=== PATIENT | male | born 1990 | race African-American/Black ===

== ENCOUNTER 2025-02-24 15:27 | Outpatient (AMB) | payer OTHER, SELFPAY ==
--- NOTE | 2025-02-24 15:32 | A.OFFPC_ITS ---
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 Saw ortho [place] new insurance is requiring Ortho referral Saw Dr. Evelio Rogers at [facility] Accompanied by: Self / Same As Patient Allergies metoclopramide (From Reglan) Allergy (Mild, Verified 02/24/25 15:40) jittery Tobacco use date assessed: 02/24/25 Dental Screening Dental Screen Date: 02/24/25 Did you have a dental visit in the last 12 months?: Yes Was dental information given to patient?: Patient has dentist HPI HPI Comments History of Present Illness Details History of Present Illness The patient is a 34-year-old male presenting to [facility] care with a new primary care physician and for a comprehensive health evaluation. Left Knee Injury: The patient sustained a -related injury to his left knee last year. He received treatment at that time, which included an MRI and other scans. His symptoms improved, and he is not currently experiencing any knee issues. He was being followed by an orthopedist, Dr. Evelio Rogers, but missed a follow-up appointment. Neck Tightness: The patient reports experiencing neck tightness, which he believes may be related to his sleeping position and stress. He has been trying to exercise to alleviate the tightness. Surgical History: - No surgical history reported. Social History: - Employment: The patient works in [employer] in the [employer] and has been for three years. - Substance Use: Denies smoking and drin kelechi. - Marital Status: He has been fo r several years. - Family Planning: He and his are n ot actively trying for children yet, but plan to in the next year or two. - Sexual History: He is sexually active and has been a few years. - Country of Origin: He is originally fr [facility] [facility]. Family History: - Denies family history of prostate canc er. Diagnostic Results: - MRI and scans of the left knee were pe rformed last year, results not detailed. Past Medical History - Left knee injury, -related, oc curred last year; workup included an MRI and consultation with an information technology specialist. Health Maintenance - The patient is establishing care with a new primary care physician for a comprehensive health evaluation. - Comprehensive lab work was ordered for health screening. - Patient declined STD screening. - Prostate cancer screening was discusse d, and it was determined he is too young for screening in the absence of a family history. [facility] Medical History (Updated 02/24/25 @ 22:34 by Loco Hamilton MD) Neck tightness Left knee injury Family History (Updated 02/24/25 @ 15:41 by Queenie Willard CMA) Mother No problems noted. Father No problems noted. Social History Housing: Apartment Patient Tobacco Use Status: Never used Tobacco service: Yes Current occupational status: employed Cognitive needs: No Hearing needs: No Vision needs: No Questionnaire PHQ-9 Over the last 2 weeks, how often have you been bothered by any of the following problems? 1. Little interest or pleasure in doing things: not at all 2. Feeling down, depressed, or hopeless: not at all 3. Trouble falling or staying asleep, or sleeping too much: not at all 4. Feeling tired or having little energy: not at all 5. Poor appetite or overeating: not at all 6. Feeling bad about yourself - or that you are a failure or have let yourself or your family down: not at all 7. Trouble concentrating on things, such as reading the newspaper or watching television: not at all 8. Moving or speaking so slowly that other people could have noticed. Or the opposite - being so fidgety or restless that you have been moving around a lot more than usual: not at all 9. Thoughts that you would be better off or of hurting yourself in some way: not at all Total score: 0 Source: Developed by Drs. Ender Tse, Kalyn Akhtar, Jesse Renner and colleagues, with an educational yoko from [employer]. Thrive Questionnaire Date Thrive assessed: 02/24/25 I am a: Patient What is your living situation today?: I have a steady place to live Within the past 12 months, did the food you bought not last and you didn't have the money to get more?: Never true Within the past 12 months, did you worry whether your food would run out before you got money to buy more?: Never true Do you have trouble paying for medicines?: No Do you have trouble getting transportation to medical appointments?: No Do you have trouble paying your heating and electricity bill?: No Do you have trouble taking care of your child, family member or friend?: No Are you currently unemployed and looking for a job?: No Are you interested in more education?: No Please select the resources that you would like help with: None Currently or been in a relationship where the following occur: No concerns reported THRIVE Score: 0 AUDIT C Alcohol Use Questionnaire (AUDIT-C) 1. How often do you have a drink containing alcohol?: Never Total Score: 0 ZAINA-7 AMB Questionnaire ZAINA-7 Date ZAINA - 7 assessed: 02/24/25 Feeling nervous, anxious, or on edge: 0 = Not at all Not being able to stop or control worryin = Not at all Worrying too much about different things: 0 = Not at all Trouble relaxin = Not at all Being so restless that it is hard to sit still: 0 = Not at all Becoming easily annoyed or irritable: 0 = Not at all Feeling afraid as if something awful might happen: 0 = Not at all Total ZAINA-7 score (0-4 normal; 5-9 mild; 10-14 moderate; 15-21 severe): 0 Source: Developed by Drs. Ender Tse, Kalyn Akhtar, Jesse Renner and colleagues, with an educational yoko from [employer]. Review of Systems Narrative Review of Systems - Musculoskeletal: Reports history of a left knee injury, which has since improved. Reports recent neck tightness, possibly related to stress or sleeping position. - Neurological: Reports sleeping well. - Genitourinary: Denies erectile dysfunction. - All other systems reviewed and are negative. 10-point ROS reviewed and negative except as noted in HPI Physical exam (Primary Care) Vital Signs: Last Vital Signs Temp 97.5 F 02/24/25 15:36 Pulse 62 02/24/25 15:36 BP 120/67 02/24/25 15:36 Pulse Ox 100 02/24/25 15:36 Oxygen Delivery Method Room Air 02/24/25 15:36 BMI result Body Mass Index 21.4 Tobacco/Smoking Status: Tobacco use Status Tobacco use date assessed 02/24/25 02/24/25 15:33 Patient Tobacco Use Status Never used Tobacco 02/24/25 15:33 PHQ-9: PHQ-9 Score PHQ-9: Total score 0 02/24/25 15:33 Thrive Assessment: Date of Thrive Assessment Date Thrive assessed 02/24/25 02/24/25 15:33 Currently or been in a relationship where the following occur: No concerns reported Narrative Physical Exam General: Well-appearing, in no acute distress. Vital signs: Within normal limits. HEENT: Normocephalic, atraumatic. PERRLA, EOMI. Conjunctiva clear, sclera anicteric. Oropharynx clear, mucous membranes moist. TMs intact bilaterally. Neck: Supple, no lymphadenopathy, no thyromegaly, no JVD or carotid bruits. Cardiovascular: RRR, normal S1/S2, no murmurs, rubs, or gallops. Peripheral pulses 2+ and symmetric. No edema. Respiratory: Lungs clear to auscultation bilaterally, no wheezes, rales, or rhonchi. Normal effort. Abdomen: Soft, non-tender, non-distended. Normoactive bowel sounds. No hepatosplenomegaly, no masses. MSK: Full range of motion, no joint swelling or deformity. Normal gait. History of left knee injury last year, currently resolved. Skin: Warm, dry, intact. No rashes, lesions, or pallor. Neuro: Alert and oriented x3. Cranial nerves II-XII intact. Strength 5/5 throughout. Sensation intact. Reflexes 2+ symmetric. Normal coordination and gait. Psych: Appropriate mood and affect. Normal judgment and insight. Office Procedures Flu Questionnaire Does the patient have a severe egg allergy?: No Does the patient have severe life threatening allergies?: No Does the patient have a fever or illness today?: No Has the patient ever had Guillain-Hammond Syndrome?: No Has the patient ever had any past reaction to a flu shot?: No Immunizations Fluarix [id number] (PF) 45 mcg (15 mcg x 3)/0.5 mL IM syringe Performing Provider: Loco Hamilton MD [facility] Documented (not given) by: Queenie Willard CMA on 02/24/25 15:45 Reason Not Given: Received Previously Coding Level of Care Code New Pt Level 4 (86535) Diagnoses Left knee injury S89.92XA Neck tightness R29.898 Assessment & Plan Assessment & Plan (1) Left knee injury: Code(s): S89.92XA - Unspecified injury of left lower leg, initial encounter Category: Medical (2) Neck tightness: Code(s): R29.898 - Other symptoms and signs involving the musculoskeletal system Category: Medical Plan Consent The risks, benefits, and alternatives of comprehensive blood work, including a complete blood count, comprehensive metabolic panel, hemoglobin A1c, hepatitis B and C, HIV, lipid panel, magnesium, vitamin B12, folate, and vitamin D were discussed. The patient provided verbal consent to proceed with the lab work. The patient was also offered an STD screen for chlamydia, gonorrhea, and syphilis, which he declined. Patient was informed and verbally consented to the use of an ambient scribe for clinic note documentation during this visit. Plan 1. Wellness Examination - Will obtain comprehensive laboratory studies including a CBC, CMP, hemoglobin A1c, hepatitis B and C, HIV, lipid panel, magnesium, vitamin B12, folate, and vitamin D to assess overall health. - Patient declined screening for sexually transmitted diseases. - Will follow up in two weeks to review the results of the lab work. 2. Neck Tightness - Recommended conservative measures including the use of heating pads and warm showers to relax the neck muscles. - Suggested trying [id number] Biofreeze gel, and to consider alternating between heat and cold applications. 3. History Of Left Knee Injury - Will provide a referral to [facility] for a follow-up appointment with Dr. Evelio Rogers regarding his prior knee injury. Discussion Notes I discussed with the patient that this visit is to establish care and obtain a baseline of his overall health. I explained the rationale for ordering comprehensive bloodwork to obtain a complete picture of his health. I reassured him that at age 34 with no family history, routine screening for prostate cancer is not indicated. For his neck tightness, I recommended conservative treatments including heating pads and an [id number] topical analgesic like Biofreeze. We discussed a referral to his previous information technology specialist for continuity of care for his prior knee injury. Arrangements were made for a follow-up visit in two weeks to discuss the results of his lab work. Patient Instructions - Please go to the lab to have your blood drawn for the ordered tests. - For your neck tightness, you can try using a heating pad or warm showers. You can also buy a product called Biofreeze gel [id number] and apply it to the area. - We will give you a referral to see the information technology specialist, Dr. Evelio Rogers, for your knee. Please call his office to make an appointment. - Please return to the clinic in two weeks to go over your lab results. Medical Decision Making The patient is a 34-year-old male, [employer], presenting to [facility] care and for a comprehensive health evaluation. His primary goal is to understand his overall health status. Given his age and desire for a baseline assessment, a comprehensive lab panel including CBC, CMP, lipids, HbA1c, and vitamin levels was ordered to screen for common chronic diseases and nutritional deficiencies. The patient's concern about prostate health was addressed; given his age of 34 and no family history, screening is not currently indicated per standard guidelines. His complaint of neck tightness appears musculoskeletal and likely related to stress or posture; conservative management with heat and topical analgesics is a reasonable first-line approach. Although his prior left knee injury is currently asymptomatic, providing a referral to his previous information technology specialist ensures continuity of care and allows for expert follow-up should issues arise in the future. A follow-up is scheduled in two weeks to review all findings and formulate a long-term health maintenance plan. Total time spent caring for the patient today was 30 minutes. This includes time spent before the visit reviewing the chart, time spent documenting, and time spent reviewing laboratory results, diagnostic imaging, medications, performing a medically necessary evaluation, counseling on diagnoses, care coordination. Orders: Orders Influenza [id number] Immunization Today Z23 - Encounter for immunization Comprehensive Met. Panel Today Z13.9 - Encounter for screening, unspecified Hepatitis B Surface Antibody Today Z13.9 - Encounter for screening, unspecified Hepatitis B Surface Antigen Today Z13.9 - Encounter for screening, unspecified HIV Ab/Ag Today Z13.9 - Encounter for screening, unspecified Magnesium Today Z13.9 - Encounter for screening, unspecified Vitamin D 1,25 dihydroxy Today Z13.9 - Encounter for screening, unspecified Hepatitis C Antibody Today Z13.9 - Encounter for screening, unspecified Complete Blood Count Auto Diff Today Z13.9 - Encounter for screening, unspecified Hemoglobin A1c Today Z13.9 - Encounter for screening, unspecified Lipid Panel Today Z13.9 - Encounter for screening, unspecified UA CC w/rflx Micro + Cult Today Z13.9 - Encounter for screening, unspecified Vitamin B12 and Folate Today Z13.9 - Encounter for screening, unspecified Referrals Orthopedics Referral S89.92XA - Unspecified injury of left lower leg, initial encounter
[2025-02-24 15:36] VITALS: BP 120/67; PULSE 62; TEMP 36.4; O2SAT 100; BMI 21.4
--- OUTSIDE RECORDS SUMMARY | 2025-02-24 18:00 | XMS_ITS | Clinical Summary ---
Author Organization [facility] [address] Address [address] [place] [address] Care Team Providers Care Welder Fitter Gas Name Role Phone Lyla Diaz NP Primary Care Provider [phone] Allergies No known active allergies Medications ondansetron (ZOFRAN-ODT) [address] 1 tablet (4 mg total) onto the tongue every 8 (eight) hours as needed for nausea for up to 7 days. 20 tablet 01/26/20 25 Encounters Date Type Department Care Team Description 01/18/2025 1:49 AM EDT - 01/18/2025 6:41 AM EDT Emergency [facility] Emergency Department [address] [place] [id number] Rosa Maria Langley DO Acute nonintractable headache, unspecified headache type (Primary Dx) Discharge Disposition: Home or Self Care from Last 3 Months Social History Tobacco Use Types Packs/Day Years Used Date Smoking Tobacco: Never Smokeless Tobacco: Never Alcohol Use Standard Drinks/Week Comments Never 0 (1 standard drink = 0.6 oz pur e alcohol) PHQ-2 Answer Date Recorded PHQ-2 Total Score 0 12/23/2023 Sex and Gender Information Value Date Recorded Sex Assigned at Not on file Legal Sex Male 10:24 AM EDT Gender Identity Not on file Sexual Orientation Not on file Last Filed Vital Signs Vital Sign Reading Time Taken Comments Blood Pressure 109/69 01/18/2025 6:25 AM EDT Pulse 80 01/18/2025 6:25 AM EDT Temperature 36.6 C (97.8 F) 01/18/2025 6:25 AM EDT Respiratory Rate 15 01/18/2025 6:25 AM EDT Oxygen Saturation 100% 01/18/2025 6:25 AM EDT Inhaled Oxygen Concentration - - Weight 73.9 kg (163 lb) 12/23/2023 2:04 PM EDT Height 190.5 cm (6' 3 ) 12/23/2023 2:04 PM EDT Body Mass Index 20.37 12/23/2023 2:04 PM EDT Plan of Treatment Health Maintenance Due Date Last Done Comments Tetanus adult (Td q 10,TDAP once) 2008 Influenza vaccine 11/26/2024 Covid-19 vaccine series ( season) 2024 RSV Immunization (1 - 1-dose 75+ series) 10/09/2063 HIV screening Completed 02/07/2024 Hepatitis C screening Completed 02/07/2024 Meningococcal B Vaccine Aged Out No l onger eligible based on patient's age to complete this topic Meningococcal Vaccine Aged Out No ryann dominik eligible based on patient's age to complete this topic Pneumococcal Vaccine (2 - 49 years) Aged Out No longer eligible b ased on patient's age to complete this topic Procedures Procedure Name Priority Date/Time Associated Diagnosis Comments CT HEAD WO IV CONTRAST STAT 01/18/2025 5:53 AM EDT SARS-COV-2 (COVID-19)/INFLUENZ A A+B/RSV BY RT-PCR ([facility] Y) Urgent 01/18/2025 3:29 AM EDT HIV 1/2 AG/AB, W/REFLEXES (Q) Routine 02/07/2024 12:00 AM EDT Routine physical examination HEPATITIS C AB WITH REFLEX TO HCV PCR Routine 02/07/2024 12:00 AM EDT Routine physical examination from Last 3 Months or Most Recently Relevant to Health Maintenance Results * CT Head wo IV Contrast (01/18/2025 5:53 AM EDT) Anatomical Region Laterality Modality Head, Ortho Head Computed Tomogr aphy 01/18/2025 5:54 AM EDT Impressions 01/18/2025 6:30 AM EDT No acute intracranial abnormality. Please note that Noncontrast Head CT is not sensitive for the detection of ischemic infarct. If ischemic infarct is of clinical concern, additional clinical or imaging evaluation is recommended. [facility] Radiology Notify System Classification: Trackable imaging recommendation. Report initiated by: Maxwell Andrews MD Reported and signed by: Damon Hua MD [facility] Narrative 01/18/2025 6:[address] HEAD WO IV CONTRAST INDICATION: headache. new onset COMPARISON: NONE TECHNIQUE: CT images were obtained from the skull base to the vertex without intravenous contrast. Coronal and sagittal multiplanar reformatted images were provided. FINDINGS: There is no intracranial hemorrhage, edema, mass, mass effect or midline shift. There is no evidence of acute major vascular distribution infarct. The ventricles and sulci are symmetric and normal in size. The basal cisterns are patent. Mild mucosal thickening of the ethmoid air cells. The paranasal sinuses and mastoid air cells are otherwise clear. There is a 0.8 cm sclerotic focus within the posterior left parietal bone (series 4, image 192), likely a benign bone island. The visualized orbits and osseous structures are otherwise unremarkable. Procedure Note Damon Hua MD - 01/18/2025 CT HEAD WO IV CONTRAST INDICATION: headache. new onset COMPARISON: NONE TECHNIQUE: CT images were obtained from the skull base to the vertexwithout intravenous contrast. Coronal and sagittal multiplanar reformattedimages were provided. FINDINGS: There is no intracranial hemorrhage, edema, mass, mass effect or midlineshift. There is no evidence of acute major vascular distribution infarct.The ventricles and sulci are symmetric and normal in size. The basalcisterns are patent. Mild mucosal thickening of the ethmoid air cells. The paranasal sinusesand mastoid air cells are otherwise clear. There is a 0.8 cm scleroticfocus within the posterior left parietal bone (series 4, image 192),likely a benign bone island. The visualized orbits and osseous structuresare otherwise unremarkable. IMPRESSION: No acute intracranial abnormality. Please note that Noncontrast Head CT is not sensitive for the detection ofischemic infarct. If ischemic infarct is of clinical concern, additionalclinical or imaging evaluation is recommended. [facility] Radiology Notify System Classification: Trackable imagingrecommendation. Report initiated by: Maxwell Andrews MD Reported and signed by: Damon Hua MD [facility] Rosa Maria Langley DO IMG CT ORDERABLES Final Result * COVID/Flu/RSV (01/18/2025 3:29 AM EDT) Influenza A Negative Negative 01/18/2025 5:25 AM EDT [facility] Comment:Negative results do not preclude infection from influenza or other respiratory viruses and should not be used as the sole basis for treatment or management. Influenza may exhibit genomic variation among circulating and newly emerging strains that may lead to unexpected falsely negative results for some tests. For all respiratory pathogens, falsely negative results may also arise from poorly collected specimens. If concerns remain high, providers should contact the laboratory for potential testing by an alternative testing method and/or submit a new well-collected nasopharyngeal specimen. Influenza B Negative Negative 01/18/2025 5:25 AM EDT [facility] Respiratory Syncytial Virus Negative Negative 01/18/2025 5:25 AM EDT [facility] SARS-CoV-2 RNA (COVID-19) Negative Negative 01/18/2025 5:25 AM EDT [facility] Comment:Test performance has not been evaluated in asymptomatic patients. Negative results do not preclude SARS-CoV-2, Influenza A, Influenza B and/or RSV infection. The results of these tests should not be used as the sole basis for diagnosis, treatment, or other patient management decisions. Viral NASOPHARYNGEAL STRUCTURE / Unknown Collection / Unknown 01/18/2025 3:29 AM EDT 01/18/2025 4:36 AM EDT Rosa Maria Langley DO MICROBIOLOGY - GENERAL ORDERAB LES Final Result [facility] [address] [place] [address], [facility] [phone] * HIV 1/2 ag/ab, w/reflexes (Q) (02/07/2024 12:00 AM EDT) HIV Ag/Ab, 4th Generation NON-REACT CHANDANA NON-REACT CHANDANA [facility] Comment: HIV-1 antigen and HIV-1/HIV-2 antibodies were not detected. There is no laboratory evidence of HIV infection. PLEASE NOTE: This information has been disclosed to you from records whose confidentiality may be protected by state law. If your state requires such protection, then the state law prohibits you from making any further disclosure of the information without the specific written consent of the person to whom it pertains, or as otherwise permitted by law. A general authorization for the release of medical or other information is NOT sufficient for this purpose. For additional information please refer to http://PAS-Analytik.DN2K/faq/PWQ298 (This link is being provided for informational/ educational purposes only.) The performance of this assay has not been clinically validated in patients less than 2 years old. Blood 02/07/2024 02/07/2024 11: 45 AM EDT Narrative [facility] - 02/08/2024 9:34 AM EDT FASTING:YES FASTING: YES Resulting Agency Comment Performing Lab: Site ID: [id number] Name: [facility] Address: [address] [place] [id number] Director: Angel Ya M.D. Lyla Diaz NP LAB BLOOD ORDERABLES Final Resu lt Performing Organization Address City/State/[facility] Co de Phone Number [facility] [address] [place] [id number] [place] [address] * Hepatitis C Ab with reflex to HCV PCR (02/07/2024 12:00 AM EDT) Hepatitis C Ab NON-REACT CHANDANA NON-REACT CHANDANA [facility] Comment: HCV antibody was non-reactive. There is no laboratory evidence of HCV infection. In most cases, no further action is required. However, if recent HCV exposure is suspected, a test for HCV RNA (test code 45753) is suggested. For additional information please refer to http://education.DN2K/faq/ZKR88b8 (This link is being provided for informational/ educational purposes only.) Blood 02/07/2024 02/07/2024 11: 45 AM EDT Narrative [facility] - 02/08/2024 9:34 AM EDT FASTING:YES FASTING: YES Resulting Agency Comment Performing Lab: Site ID: [id number] Name: [facility] Address: [address] [place] [phone] Director: Angel Ya M.D. us Lyla Diaz NP LAB BLOOD ORDERABLES Final Resu lt [facility] [address] [place] [address] from Last 3 Months or Most Recently Relevant to Health Maintenance Insurance [facility] on file Member Subscriber Plan / Payer (Ef fective 2024-Present) Name:Saul Sanchez Relation to Subscriber:Self Name:Saul Sanchez Payer ID:[id number] Group ID:Not on file Type:Not on file Address: [place] [id number] Care Teams Welder Fitter Gas Relationship Specialty Start Date End Date Lyla Diaz NP [address] [place] [address] PCP - General Family Medicine 01/27/24
--- OUTSIDE RECORDS SUMMARY | 2025-02-24 18:00 | XMS_ITS | Encounter Summary ---
Author Organization [facility] Address [address] [place] [address] Care Team Providers Care Solder Deposit Operator Name Role Phone Lazaro Gaytan MD Primary Care Provider [phone] Encounter Details Date Type Department Care Team (Late st Contact Info) Description 05/25/2024 Scanned Document [facility] [address] [place] [address] Provider, Generic Social History Tobacco Use Types Packs/Day Years Used Date Smoking Tobacco: Never Assessed Sex and Gender Information Value Date Recorded Sex Assigned at Male 12/15/2022 1:15 PM EDT Legal Sex Male 1:14 PM EDT Gender Identity Male 12/15/2022 1:15 PM EDT Sexual Orientation Heterosexual (straight) 12/15 1:15 PM EDT documented as of this encounter Plan of Treatment Upcoming Encounters Date Type Department Care Team (Late st Contact Info) Description 03/04/2025 3:15 PM EST Office Visit [facility] [address] [place] [address] Evelio Rogers MD [address] [place] [address] documented as of this encounter Visit Diagnoses Not on filedocumented in this encounter Care Teams Solder Deposit Operator Relationship Specialty Start Date End Date Lazaro Gaytan MD PCP - General Family Medicine 12/15/22 documented as of this encounter
--- OUTSIDE RECORDS SUMMARY | 2025-02-24 18:00 | XMS_ITS | Encounter Summary ---
Author Organization [facility] Address [address] [place] [address] Care Team Providers Care Awning Installer Name Role Phone Lazaro Gaytan MD Primary Care Provider + [phone] Encounter Details Date Type Department Care Team (Late st Contact Info) Description 10/26/2024 Scanned Document [facility] [address] [place] [address] Provider, Generic Social History Tobacco Use Types Packs/Day Years Used Date Smoking Tobacco: Never Passive Smoke Exposure: Never Smokeless Tobacco: Never Alcohol Use Standard Drinks/Week Comments Not Currently 0 (1 standard drink = 0.6 oz pur e alcohol) ocassionaly Sex and Gender Information Value Date Recorded Sex Assigned at Male 12/15/2022 1:15 PM EDT Legal Sex Male 1:14 PM EDT Gender Identity Male 12/15/2022 1:15 PM EDT Sexual Orientation Heterosexual (straight) 12/15 1:15 PM EDT documented as of this encounter Plan of Treatment Upcoming Encounters Date Type Department Care Team (Late st Contact Info) Description 03/04/2025 3:15 PM EST Office Visit [facility] [address] [place] [address] Evelio Rogers MD [address] [place] [address] documented as of this encounter Visit Diagnoses Not on filedocumented in this encounter Care Teams Awning Installer Relationship Specialty Start Date End Date Lazaro Gaytan MD PCP - General Family Medicine 12/15/22 documented as of this encounter
--- OUTSIDE RECORDS SUMMARY | 2025-02-24 18:00 | XMS_ITS | Clinical Summary ---
Author Organization [facility] Address [address] [place] [address] Care Team Providers Care Branch Service Specialist Name Role Phone Lazaro Gaytan MD Primary Care Provider + [phone] Allergies No known active allergies Medications Multiple Vitamins-Mineral s (ONE-A-DAY MENS, MINERALS, PO) Active meloxicam (MOBIC) 15 MG tabletIndication s:Left knee pain, unspecified chronicity Take 1 tablet (15 mg total) by mouth daily. 20 tablet 02/12/2024 Active clindamycin (CLEOCIN-T) 1 % lotion APPLY THIN LAYER TO FACE AND NECK ONCE DAILY FOR BUMPS 06/22/2024 Active Active Problems No known active problems Social History Tobacco Use Types Packs/Day Years Used Date Smoking Tobacco: Never Passive Smoke Exposure: Never Smokeless Tobacco: Never Tobacco Cessation:Counseling Given: No Alcohol Use Standard Drinks/Week Comments Not Currently 0 (1 standard drink = 0.6 oz pur e alcohol) ocassionaly Sex and Gender Information Value Date Recorded Sex Assigned at Male 12/15/2022 1:15 PM EDT Legal Sex Male 1:14 PM EDT Gender Identity Male 12/15/2022 1:15 PM EDT Sexual Orientation Heterosexual (straight) 12/15 1:15 PM EDT Last Filed Vital Signs Vital Sign Reading Time Taken Comments Blood Pressure 103/67 12/15/2022 1:41 PM EDT Pulse 64 12/15/2022 1:41 PM EDT Temperature 37.3 C (99.1 F) 12/15/2022 1:41 PM EDT Respiratory Rate 14 12/15/2022 1:41 PM EDT Oxygen Saturation 98% 12/15/2022 1:41 PM EDT Inhaled Oxygen Concentration - - Weight 76.7 kg (169 lb) 06/10/2024 2:56 PM EST Height 191.8 cm (6' 3.5 ) 06/10/2024 2:56 PM EST Body Mass Index 20.84 06/10/2024 2:56 PM EST Plan of Treatment Upcoming Encounters Date Type Department Care Team (Late st Contact Info) Description 03/04/2025 3:15 PM EST Office Visit [facility] [address] [place] [address] Evelio Rogers MD [address] [place] [address] Health Maintenance Due Date Last Done Comments Hepatitis C Virus Screening 1988 HIV Screening 2001 DTaP/Tdap/Td Vaccines (1 - Tdap) 10/09/2007 Hepatitis B Vaccines (1 of 3 - 19+ 3-dose series) 10/09/2007 COVID-19 Vaccine ( - 2023-2 5 season) 2024 Influenza Vaccine Completed 02/08/2025, 01/31/2024 HPV Vaccines (No Doses Required) Completed Pneumococcal Vaccine: Pediatric (0-5 Years) and At-Risk Patients (6 to 49 Years) Aged Out No longer eligible b ased on patient's age to complete this topic Insurance [facility] Care Teams Branch Service Specialist Relationship Specialty Start Date End Date Lazaro Gaytan MD PCP - General Family Medicine 12/15/22
--- OUTSIDE RECORDS SUMMARY | 2025-02-24 18:00 | XMS_ITS ---
Author Name [facility] Organization Unknown Results Test Name/Text Value Interpretation Date Range Source HCV Ab SerPl Ql IA NON-REACTIVE Normal 02/08/2024 - [facility] HIV 1+2 Ab+HIV1 p24 Ag SerPl Ql IA NON-REACTIVE Normal 02/08/2024 - [facility] AST SerPl-cCnc 15.0 U/L Normal 02/08/2024 10 - 40 [facility] T CO2 SerPl-sCnc 28.0 mmol/L Normal 02/08/2024 20 - 32 QU EST ALT SerPl-cCnc 15.0 U/L Normal 02/08/2024 9 - 46 QUES T Calcium SerPl-mCnc 9.7 mg/dL Normal 02/08/2024 8.6 - 10.3 [facility] BUN SerPl-mCnc 13.0 mg/dL Normal 02/08/2024 7 - [address] Bilirub SerPl-mCnc 0.8 mg/dL Normal 02/08/2024 0.2 - 1.2 [facility] Sodium SerPl-sCnc 136.0 mmol/L Normal 02/08/2024 135 - 14 6 [facility] Creat SerPl-mCnc 1.21 mg/dL Normal 02/08/2024 0.6 - 1.26 [facility] eGFRcr SerPlBld CKD-EPI 2020 80.0 mL/min/1.73m2 Normal 02/08/2024 - [facility] BUN/Creat SerPl SEE NOTE: Normal 02/08/2024 6 - [address] Potassium SerPl-sCnc 4.3 mmol/L Normal 02/08/2024 3.5 - 5 .3 [facility] Albumin SerPl-mCnc 4.3 g/dL Normal 02/08/2024 3.6 - 5.1 [facility] Albumin/Glob SerPl 1.4 (calc) Normal 02/08/2024 1 - 2.5 [facility] Globulin Ser Calc-mCnc 3.1 g/dL (calc) Normal 02/08/2024 1.9 - 3.7 [facility] Chloride SerPl-sCnc 100.0 mmol/L Normal 02/08/2024 98 - 1 10 [facility] Glucose SerPl-mCnc 90.0 mg/dL Normal 02/08/2024 65 - 99 [facility] ALP SerPl-cCnc 67.0 U/L Normal 02/08/2024 36 - 130 QUES T Prot SerPl-mCnc 7.4 g/dL Normal 02/08/2024 6.1 - 8.[address] Trigl SerPl-mCnc 58.0 mg/dL Normal 02/08/2024 - 150 Q [facility] LDLc SerPl Calc-mCnc 108.0 mg/dL (calc) Above high normal 02/08/2024 [facility] Cholest SerPl-mCnc 171.0 mg/dL Normal 02/08/2024 - 200 [facility] Cholest/HDLc SerPl 3.5 (calc) Normal 02/08/2024 - 5 [facility] NonHDLc SerPl-mCnc 122.0 mg/dL (calc) Normal 02/08/2024 - 130 [facility] HDLc SerPl-mCnc 49.0 mg/dL Normal 02/08/2024 - QU EST TSH SerPl-aCnc 1.23 mIU/L Normal 02/08/2024 0.4 - 4.[address] Hct VFr Bld Auto 47.1 % Normal 02/08/2024 38.5 - 50 QU EST MCHC RBC Auto-mCnc 32.3 g/dL Normal 02/08/2024 32 - 36 [facility] PMV Bld Manuel-Ofelia 11.0 fL Normal 02/08/2024 7.5 - 12.5 [facility] MCH RBC Qn Auto 27.1 pg Normal 02/08/2024 27 - [address] RBC # Bld Auto 5.61 Million/uL Normal 02/08/2024 4.2 - 5. 8 [facility] MCV RBC Auto 84.0 fL Normal 02/08/2024 80 - 100 [facility] RDW RBC Auto-Rto 14.5 % Normal 02/08/2024 11 - 15 QU EST WBC # Bld Auto 3.7 Thousand/uL Below low normal 02/08/2024 3 .8 - 10.8 [facility] Hgb Bld-mCnc 15.2 g/dL Normal 02/08/2024 13.2 - 17.1 QUES T Platelet # Bld Auto 271.0 Thousand/uL Normal 02/08/2024 140 - 400 [facility] History of Medication Use Medication Directions Dispensed Refills Start Date End Date Stat us clindamycin (CLEOCIN-T) 1 % lotion APPLY THIN LAYER TO FACE AND NECK ONCE DAILY FOR BUMPS 06/22/2024 active clindamycin phosphate (lotion) Apply thin layer to face and neck once daily for bumps 06/22/2024 completed meloxicam (MOBIC) 15 MG tablet Take 1 tablet (15 mg total) by mouth daily. 02/12/2024 active Multiple Vitamins-Minerals (ONE-A-DAY MENS, MINERALS, PO) active No known medications No known medications active Problems Problem Status Onset Date Problem Type Date of Resolution Source Primary osteoarthritis of left knee active EncounterDiagnosisAct [facility] Acute pain of left knee active EncounterDiagnosisAct [facility] Chronic pain of right ankle active EncounterDiagnosisAct [facility] Encounters Encounter Type Encounter Reason Primary Diagnosis Location Date Ambulatory [facility] 02/17/2025 Emergency Headache(784.0) Headache(784.0) [facility] 01/18/[address] [facility] 09/23 Ambulatory Follow-up Follow-up [id number] 07/08/2024 Ambulatory [facility] 06/30/[address] [facility] 06/22 Ambulatory [facility] 06/21/2024 Ambulatory [facility] 06/14/2024 Ambulatory [facility] 06/10/2024 Ambulatory Pain in left knee Pain in left knee [facility] 05/31/2024 Ambulatory [id number] 05/24/2024 Ambulatory [facility] 04/29/2024 Ambulatory [facility] 04/01/2024 Ambulatory [id number] 03/04/2024 Ambulatory [id number] 02/12/2024 Ambulatory [id number] 02/12/2024 Ambulatory [facility] 02/09/2024 Ambulatory [facility] 02/09/2024 Ambulatory Routine general medical examination at a health care facility Routine general medical examination at a health care facility [facility] 12/23/2023 Ambulatory Leg Pain [facility] 01/09/2023 Ambulatory Contact with and (suspected) exposure to covid-19 Contact with and (suspected) exposure to covid-19 [facility] 12/15/2022 Ambulatory Routine general medical examination at a health care facility Routine general medical examination at a health care facility [facility] 12/11/2022 Care Team Organization Name Specialty Phone Email Start Date End Da te [facility] NISHA PAZ Primary Care 02/14/2025 [facility] INGRIS AGUILERA Primary Care 01/18/2025 [facility] INGRIS AGUILERA Primary Care 01/18/2025 [facility] INGRIS AGUILERA Primary Care 11/09/2024 [facility] 06/28/2024 [facility] 05/27/2024 [facility] 05/18/2023 [facility] NISHA PAZ Primary Care 12/15/202207/27 [facility] NISHA PAZ Primary Care 12/15/2022 12/15/2022 [facility] NISHA PAZ Primary Care 12/11/2022 12/11/2022 [facility] NISHA PAZ Primary Care
== END 2025-02-24 16:06 | disposition home or self-care (01) ==
PROVIDERS: PCP Student in an Organized Health Care Education/Training Program; Visit Provider Student in an Organized Health Care Education/Training Program
DX: S89.92XA Unspecified injury of left lower leg, initial encounter (principal); R29.898 Other symptoms and signs involving the musculoskeletal system; Z23 Encounter for immunization

== ENCOUNTER 2025-02-24 15:27 | Outpatient (REF) | payer OTHER, SELFPAY ==
[2025-02-24 17:28] LABS: MANUAL DIFF FLAG NO
[2025-02-24 17:53] LABS: Hematocrit 43.8 % (42.0-52.0); Hemoglobin 14.3 g/dl (14.0-18.0); Imm Gran Abs Auto 0.00 X10*3/uL (0.00-0.03); Imm Gran Pct Auto 0.0 % (0.0-0.4); Lymphocytes Absolute Auto 2.4 X10*3/uL (1.2-4.9); Mean Corpuscular HGB Conc 32.6 g/dl (31.0-36.0); Mean Corpuscular Hemoglobin 27.2 pg (27.0-33.0); Mean Corpuscular Volume 83.4 fL (80.0-98.0); NRBC Abs Auto 0.000 X10*3/uL (0.0-0.012); NRBC Pct Auto 0.0 /100WBC (0.0-0.2); Platelet Count 236 X10*3/uL (160-400); Red Blood Count 5.25 X10*6/uL (4.60-5.80); White Blood Count 4.9 X10*3/uL (4.8-10.8)
[2025-02-24 17:54] LABS: Appearance Urine Clear; Glucose Urine UA Negative (Negative); PH 6.0 (5.0-9.0); Specific Gravity - Urine 1.020 (1.005-1.025)
[2025-02-24 18:25] LABS: Alanine Aminotransferase 24 U/L (0-40); Albumin Level 4.2 g/dL (3.5-5.0); Alkaline Phosphatase 81 U/L (39-117); Anion Gap 9 (12-20); Aspartate Amino Transferase 38 U/L (5-37); Blood Urea Nitrogen 15 mg/dL (9-16); Calcium 9.2 mg/dL (8.4-10.2); Carbon Dioxide 29 mmol/L (22-29); Chloride 109 mmol/L (96-108); Cholesterol 161 mg/dL (<200); Estimated Glomerular Filt Rate > 60; HDL Cholesterol 46 mg/dL (>40); Magnesium 1.9 mg/dL (1.6-2.6); Potassium 4.0 mmol/L (3.3-5.1); Sodium 143 mmol/L (135-145); Total Protein 7.1 g/dL (6.5-8.0); Triglycerides 100 mg/dL (<150)
[2025-02-24 19:03] LABS: Folate 5.5 ng/mL (> or = 4.0); Vitamin B12 843 pg/mL (200-900)
[2025-02-25 04:29] LABS: HBS Num1 21.84 mIU/mL (0-7.99); HBsAGNum1 0.39 S/CO (0.00-0.99); HIV Num 1 0.06 S/CO (0.00-0.99); Hepatitis B Surface Antigen Negative (Negative); ~HepC Num1 0.11 S/CO (0.00-0.79); ~Hepatitis B Surface Antibody REACTIVE (Nonreactive); ~Hepatitis C Antibody Nonreactive (Nonreactive)
[2025-02-28 14:02] LABS: VITAMIN D (1,25 OH) D3 69 pg/mL; Vit D (1,25-Dihydroxy) Total 69 pg/mL (18-72); Vitamin D (1,25 OH) D2 <8 pg/mL
== END 2025-02-24 15:28 | disposition home or self-care (01) ==
LOC: HO.HKASLDS 15:27
PROVIDERS: PCP Student in an Organized Health Care Education/Training Program; Visit Provider Student in an Organized Health Care Education/Training Program
DX: R29.898 Other symptoms and signs involving the musculoskeletal system (principal); Z13.1 Encounter for screening for diabetes mellitus; Z28.89 Immunization not carried out for other reason
CPT/HCPCS: 36415; 80053; 80061; 81003; 82607; 82652; 82746; 83036; 83735; 85025; 86706; 86803; 87340; 87389; 90471; 96127; 99202

== ENCOUNTER 2025-03-10 15:30 | Outpatient (AMB) | payer OTHER, SELFPAY ==
--- NOTE | 2025-03-10 15:35 | MHC.PC.OV ---
Vital Signs 03/10/25 15:38 Height 6 ft 3.98 in Weight 176 lb 2 oz BMI 21.4 BP 117/69 Blood Pressure Location Rt brachial Position Sitting Respiration 18 Pulse 62 Pulse Source Monitor Temp 98 F Temp Source Oral Pulse Oximetry (%) 98 Oxygen Delivery Method Room Air Intake Visit Reasons: 2 wk f/u lab review Intake Note: lab review Clinical Transformation Specialist Required: No Accompanied by: Self / Same As Patient Allergies metoclopramide (From Reglan) Allergy (Mild, Verified 03/10/25 15:38) jittery Tobacco use date assessed: 02/24/25 Dental Screening Dental Screen Date: 02/24/25 HPI HPI Comments History of Present Illness Details History of Present Illness The patient is a 34-year-old male presenting for a review of laboratory results. Acute upper respiratory infection: The patient reports he started to feel unwell this morning after running in the cold rain. He has no history of chronic conditions such as diabetes or kidney disease. Orthopedic follow-up: The patient was previously given a paper referral for an orthopedic consultation. Social History: - Exercise: The patient reports running. Diagnostic Results: - Labs: - CBC: White blood cells, red blood cells, hemoglobin, and platelets are all within normal limits. - CMP: Sodium, potassium, kidney function, and liver function are within normal limits. - Lipid panel: Triglycerides and cholesterol levels are good. - Vitamin B12 and folate levels are normal. - Urinalysis: Results are normal. Past Medical History - Denies history of diabetes or kidney disease. - Unspecified orthopedic issue requiring referral. Health Maintenance - Laboratory screening results were reviewed and found to be normal. - Advised to build up the immune system with vitamin C, orange juice, and hot soups. [facility] Medical History (Updated 02/24/25 @ 22:34 by Loco Hamilton MD) Neck tightness Left knee injury Family History Mother No problems noted. Father No problems noted. Social History (Updated 03/10/25 @ 15:38 by Douglas Turpin CMA) Housing: Apartment Patient Tobacco Use Status: Never used Tobacco service: Yes Current occupational status: employed Cognitive needs: No Hearing needs: No Vision needs: No Questionnaire Thrive Questionnaire Date Thrive assessed: 02/24/25 I am a: Patient What is your living situation today?: I have a steady place to live Within the past 12 months, did the food you bought not last and you didn't have the money to get more?: Never true Within the past 12 months, did you worry whether your food would run out before you got money to buy more?: Never true Do you have trouble paying for medicines?: No Do you have trouble getting transportation to medical appointments?: No Do you have trouble paying your heating and electricity bill?: No Do you have trouble taking care of your child, family member or friend?: No Do you have trouble with day-to-day activities such as bathing, preparing meals, shopping, managing finances, etc.?: No Are you currently unemployed and looking for a job?: No Are you interested in more education?: No Please select the resources that you would like help with: None Currently or been in a relationship where the following occur: No concerns reported THRIVE Score: 0 AUDIT C Alcohol Use Questionnaire (AUDIT-C) 3. How often do you have six or more drinks on one occasion?: Never Total Score: 0 ZAINA-7 AMB Questionnaire ZAINA-7 Date ZAINA - 7 assessed: 02/24/25 Source: Developed by Drs. Ender Tse, Kalyn Akhtar, Jesse Renner and colleagues, with an educational yoko from [employer]. Review of Systems Narrative Review of Systems - General: Reports feeling unwell. 10-point ROS reviewed and negative except as noted in HPI Physical exam (Primary Care) Vital Signs: Last Vital Signs Temp 98 F 03/10/25 15:38 Pulse 62 03/10/25 15:38 Resp 18 03/10/25 15:38 BP 117/69 03/10/25 15:38 Pulse Ox 98 03/10/25 15:38 Oxygen Delivery Method Room Air 03/10/25 15:38 BMI result Body Mass Index 21.4 Tobacco/Smoking Status: Tobacco use Status Tobacco use date assessed 02/24/25 03/10/25 15:36 Patient Tobacco Use Status Never used Tobacco 03/10/25 15:38 Thrive Assessment: Date of Thrive Assessment Date Thrive assessed 02/24/25 03/10/25 15:36 Currently or been in a relationship where the following occur: No concerns reported Narrative Physical Exam General: Well-appearing, in no acute distress. Vital signs: Within normal limits. HEENT: Normocephalic, atraumatic. PERRLA, EOMI. Conjunctiva clear, sclera anicteric. Oropharynx clear, mucous membranes moist. TMs intact bilaterally. Neck: Supple, no lymphadenopathy, no thyromegaly, no JVD or carotid bruits. Cardiovascular: RRR, normal S1/S2, no murmurs, rubs, or gallops. Peripheral pulses 2+ and symmetric. No edema. Respiratory: Lungs clear to auscultation bilaterally, no wheezes, rales, or rhonchi. Normal effort. Abdomen: Soft, non-tender, non-distended. Normoactive bowel sounds. No hepatosplenomegaly, no masses. MSK: Full range of motion, no joint swelling or deformity. Normal gait. Skin: Warm, dry, intact. No rashes, lesions, or pallor. Neuro: Alert and oriented x3. Cranial nerves II-XII intact. Strength 5/5 throughout. Sensation intact. Reflexes 2+ symmetric. Normal coordination and gait. Psych: Appropriate mood and affect. Normal judgment and insight. Coding Level of Care Code Est Pt Level 3 (24104) Diagnoses Acute upper respiratory infection J06.9 Assessment & Plan Assessment & Plan (1) Acute upper respiratory infection: Code(s): J06.9 - Acute upper respiratory infection, unspecified Plan Consent Patient was informed and verbally consented to the use of an ambient scribe for clinic note documentation during this visit. Plan 1. Acute Upper Respiratory Infection - The condition is likely viral in nature. - Recommended supportive care including Tylenol for aches, increasing vitamin C intake via supplements like Emergen-C, orange juice, and hot soups, and getting adequate rest. - Reassured the patient that due to his young age and good health, he is expected to recover quickly. 2. Encounter For General Medical Examination - Reviewed recent laboratory results, including CBC, electrolytes, kidney function, liver function, lipid panel, vitamin B12, folate, and urinalysis. - All results were within normal limits. - Reassured the patient that he is healthy. 3. Orthopedic Follow-Up - Confirmed that the patient had received the paper referral for an orthopedic consultation. Discussion Notes I reviewed the patient's laboratory results, which were all within normal limits, and I reassured him that he is a healthy 34-year-old. We discussed his new symptoms of feeling unwell after running in the cold, which are most likely indicative of a viral illness. I recommended supportive measures such as Tylenol for any aches, increasing vitamin C intake, and getting rest. I explained that because he is young and healthy with no chronic conditions, he should recover quickly. We also confirmed he has the paper referral for the inventory specialist. Patient Instructions - Your recent lab results were all normal, which is great news. - Since you are starting to feel unwell, it is likely a common virus. - You can take Tylenol if you experience any aches and pains. - To help your body fight the virus, focus on building up your immune system by drinking orange juice, having hot soups, and taking Vitamin C supplements like Emergen-C. - Make sure to get some rest. - Please follow up with the inventory specialist using the paper referral given to you. Medical Decision Making The patient is a healthy 34-year-old male presenting for a review of his annual lab work, all of which was unremarkable. He had a new, acute complaint of malaise after running in the cold rain, and given the acute onset and non-specific symptoms, the leading diagnosis is a viral upper respiratory infection. The management plan is supportive care, including rest, hydration, and OTC analgesics like Tylenol. I also recommended vitamin C supplementation to support his immune system. Due to his excellent baseline health without comorbidities such as diabetes or renal disease, his prognosis is excellent for a cohn recovery without the need for antibiotics or other specific interventions. Total Time Statement 20 min Total time spent caring for the patient today includes pre-visit chart review, documentation, review of laboratory and diagnostic imaging results, medication reconciliation, medically necessary evaluation, counseling on diagnoses, care coordination, ordering appropriate tests and medications, review of tests performed by other providers, reporting test results to the patient, and communication with other healthcare providers.
[2025-03-10 15:38] VITALS: BP 117/69; PULSE 62; RESP 18; TEMP 36.6; O2SAT 98; BMI 21.4
--- OUTSIDE RECORDS SUMMARY | 2025-03-10 18:33 | XMS_ITS | Clinical Summary ---
Author Organization [facility] [address] Address [address] [facility] [place] [place] [address] Care Team Providers Care Fresh Work Wrapper Layer Name Role Phone Lyla Diaz NP Primary Care Provider [phone] Allergies No known active allergies Medications No known medications Encounters Date Type Department Care Team Description 01/18/2025 1:49 AM EDT - 01/18/2025 6:41 AM EDT Emergency [facility] Emergency Department [address] [place] [id number] Rosa Maria Langley DO Acute nonintractable headache, [...] 2008 Influenza vaccine 11/26/2024 Covid-19 vaccine series (2024- season) 2024 RSV Immunization (1 - 1-dose [...] EDT SARS-COV-2 (COVID-19)/INFLUENZ A A+B/RSV BY RT-PCR ([facility] Y) Urgent 01/18/2025 3:29 AM EDT HIV [...] additional clinical or imaging evaluation is recommended. [facility] Radiology Notify System Classification: Trackable imaging recommendation. Report initiated by: Maxwell Andrews MD Reported and signed by: Damon Hua MD [facility] Narrative 01/18/2025 6:30 [...] concern, additionalclinical or imaging evaluation is recommended. [facility] Radiology Notify System Classification: Trackable imagingrecommendation. Report initiated by: Maxwell Andrews MD Reported and signed by: Damon Hua MD [facility] Rosa Maria Langley DO IMG CT ORDERABLES Final Result * COVID/Flu/RSV (01/18/2025 3:29 AM EDT) Pathologist [facility] Influenza A Negative Negative 01/18/2025 5:25 AM EDT [facility]IC[facility] Comment:Negative results [...] B Negative Negative 01/18/2025 5:25 AM EDT [facility] Respiratory Syncytial Virus Negative Negative 01/18/2025 5:25 AM EDT [facility] SARS-CoV-2 RNA (COVID-19) Negative Negative 01/18/2025 5:25 AM EDT [facility] Comment:Test performance [...] MICROBIOLOGY - GENERAL ORDERAB LES Final Result [facility]ICINE [address] [place] [address], [facility] [phone] * HIV 1/2 ag/ab, w/reflexes (Q) (02/07/2024 12:00 AM EDT) Pathologist [facility] HIV Ag/Ab, 4th Generation NON-REACT CHANDANA NON-REACT [...] purpose. For additional information please refer to http://[employer].Cardback/faq/JJL807 (This link is being provided for informational/ educational purposes only.) The performance of this assay has not been clinically validated in patients less than 2 years old. Blood 02/07/2024 02/07/2024 11: 45 AM EDT Narrative [facility] - 02/08/2024 9:34 AM EDT FASTING:YES FASTING: YES Resulting Agency Comment Performing Lab: Site ID: [id number] Name: [facility] Address: [address] [place] [phone] Director: Angel Ya M.D. us Lyla Diaz NP LAB BLOOD ORDERABLES Final Resu lt [facility] [address] [place] [address] * Hepatitis C Ab with reflex to HCV PCR (02/07/2024 12:00 AM EDT) Hepatitis C Ab NON-REACT CHANDANA NON-REACT CHANDANA [facility] Comment: HCV antibody was non-reactive. There is no laboratory evidence of HCV infection. In most cases, no further action is required. However, if recent HCV exposure is suspected, a test for HCV RNA (test code 28793) is suggested. For additional information please refer to http://[employer].Cardback/faq/OMG69q8 (This link is being provided for informational/ educational purposes only.) Blood 02/07/2024 02/07/2024 11: 45 AM EDT Narrative [facility] - 02/08/2024 9:34 AM EDT FASTING:YES FASTING: YES Resulting Agency Comment Performing Lab: Site ID: [id number] Name: [facility] Address: [address] [place] [phone] Director: Angel Ya M.D. Lyla Diaz WAISTLINE JOINER LAB BLOOD ORDERABLES Final Resu lt [facility] [address] [place] [address] from Last 3 Months or Most Recently Relevant to Health Maintenance Insurance [employer] on file Care Teams Fresh Work Wrapper Layer Relationship Specialty Start Date End Date Lyla Diaz NP [address] [place] [phone] PCP - General Family Medicine 01/27/24
--- OUTSIDE RECORDS SUMMARY | 2025-03-10 18:33 | XMS_ITS | Clinical Summary ---
Author Organization [facility] Address [address] [place] [id number] Care Team Providers Care Personal Fitness Trainer Name Role Phone Lazaro Gaytan MD Primary Care Provider + [phone] Allergies No known active allergies Medications Multiple Vitamins-Mineral s (ONE-A-DAY MENS, MINERALS, PO) Active meloxicam (MOBIC) 15 MG tabletIndication s:Left knee pain, unspecified chronicity Take 1 tablet (15 mg total) by mouth daily. 20 tablet 02/12/2024 Active clindamycin (CLEOCIN-T) 1 % lotion APPLY THIN LAYER TO FACE AND NECK ONCE DAILY FOR BUMPS 06/22/2024 Active Active Problems No known active problems Encounters Date Type Department Care Team Description 03/04/2025 3:35 PM EST Ancillary Procedure [facility] [address] [place] [phone] Evelio Rogers MD 03/04/2025 3:15 PM EST Office Visit [facility] [address] [place] [phone] Evelio Rogers MD Acute pain of left knee (Primary Dx) from Last 3 Months Social History Tobacco [...] EDT Inhaled Oxygen Concentration - - Weight 77.1 kg (170 lb) 03/04/2025 3:39 PM EST Height 190.5 cm (6' 3 ) 03/04/2025 3:39 PM EST Body Mass Index 21.25 03/04/2025 3:39 PM EST Plan of Treatment Health Maintenance Due Date Last Done Comments DTaP/Tdap/Td Vaccines (1 - Tdap) 10/09/2007 Hepatitis B Vaccines (1 of 3 - 19+ 3-dose series) 10/09/2007 COVID-19 Vaccine (2023-2 5 season) 2024 HIV Screening Completed 02/07/2024 Hepatitis C Virus Screening Completed 02/07/2024 Influenza Vaccine Completed 02/08/2025, 01/31/2024 HPV Vaccines (No Doses Required) Completed Pneumococcal Vaccine: Pediatric (0-5 Years) and At-Risk Patients (6 to 49 Years) Aged Out No longer eligible b ased on patient's age to complete this topic Procedures Procedure Name Priority Date/Time Associated Diagnosis Comments XR KNEE 3 VIEWS-LEFT + COMPARISON (CTOR) Routine 03/04/2025 3:48 PM EST Acute pain of left knee from Last 3 Months Results * XR Knee 3 views-Left + comparison (CTOR) (03/04/2025 3:48 PM EST) Narrative CT [facility] - 03/04/2025 3:48 PM EST This exam was performed in office at [facility] and images reviewed by orthopedic provider. Any findings are documented within ambulatory encounter note on date of service. us Evelio Rogers MD IMG DIAGNOSTIC IMAGING ORDERABL ES Final Result [facility] from Last 3 Months Insurance [facility] Care Teams Personal Fitness Trainer Relationship Specialty Start Date End Date Lazaro Gaytan MD PCP - General Family Medicine 12/15/22
--- OUTSIDE RECORDS SUMMARY | 2025-03-10 18:33 | XMS_ITS | Encounter Summary ---
Author Organization [facility] Address [address] [place] [address] Care Team Providers Care Financial Services Technician Name Role Phone Lazaro Gaytan MD Primary Care Provider [phone] Encounter Details Date Type Department Care Team (Late st Contact Info) Description 10/26/2024 Scanned Document [facility] [address] [place] [phone] Provider, Generic Social History Tobacco Use [...] as of this encounter Plan of Treatment Not on file documented as of this encounter Visit Diagnoses Not on filedocumented in this encounter Care Teams Financial Services Technician Relationship Specialty Start Date End Date Lazaro Gaytan MD PCP - General Family Medicine 12/15/22 documented as of this encounter
--- OUTSIDE RECORDS SUMMARY | 2025-03-10 18:33 | XMS_ITS | Encounter Summary ---
Author Organization [facility] Address [address] [place] [address] Care Team Providers Care Powder Nipper Name Role Phone Lazaro aGytan MD Primary Care Provider [phone] Encounter Details Date Type Department Care Team (Late st Contact Info) Description 05/25/2024 Scanned Document [facility] [address] [place] [phone] Provider, Generic Social History Tobacco Use [...] on filedocumented in this encounter Care Teams Powder Nipper Relationship Specialty Start Date End Date Lazaro Gaytan MD PCP - General Family Medicine 12/15/22 documented as of this encounter
== END 2025-03-10 15:57 | disposition home or self-care (01) ==
LOC: HO.HMCFMS 15:35
PROVIDERS: PCP Student in an Organized Health Care Education/Training Program; Visit Provider Student in an Organized Health Care Education/Training Program
DX: J06.9 Acute upper respiratory infection, unspecified (principal)

== ENCOUNTER → 2025-03-10 15:30 | Outpatient (BNVA) | payer OTHER, SELFPAY | PROVIDERS: PCP Student in an Organized Health Care Education/Training Program; Visit Provider Student in an Organized Health Care Education/Training Program | DX: Z71.2 Person consulting for explanation of examination or test findings (principal); J06.9 Acute upper respiratory infection, unspecified | CPT/HCPCS: 99212 ==